=== PATIENT | female | born 1945 | race Caucasian/White ===

== ENCOUNTER → 2017-06-26 | Outpatient (CLI) | payer MEDICARE, OTHER ==
[2017-06-26 09:22] LABS: CREATININE 0.9 mg/dL (0.5-1.1)
== END | disposition disaster alternative care site (69) ==
LOC: GRAD 07:58 → GLAB 08:00
PROVIDERS: Neurological Surgery
DX: D33.3 Benign neoplasm of cranial nerves (principal)